=== PATIENT | female | born 1965 | race African-American/Black ===

== ENCOUNTER → 2016-07-26 11:24 | Outpatient (CLI) | payer OTHER, MEDICAID ==
[2015-06-23 07:25] VITALS: BMI 34.9
[~2016-07-26 11:24] MED LIST: ADVAIR 250/501 DISK INH; ALBUTEROL2.5 MG/3 M INH; ALDACTONE25 MG PO; BENTYL10 MG PO; CARAFATE1 G/10 ML PO; CLARITIN 10 MG10 MG PO; COLACE100 MG PO; COREG6.25 MG; COREG6.25 MG PO; COUMADIN5 MG PO; DESYREL50 MG PO; FERROUS SULFAT325 MG OR; GAVISCON LIQUI355 ML PO; HYDROCHLOROTHIA25 MG PO; IMITREX50 MG PO; IMODIUM A-D2 MG PO; K-DUR20 MEQ PO; LASIX40 MG PO; LOMOTIL TABLET1 TAB PO; MIRAPEX0.25 MG PO; MULTI-DAY VITAM1 TAB PO; NEURONTIN 300300 MG PO; NORCO 10/325 TA1 TA1 PO; NORVASC5 MG PO; OXYCONTIN20 MG PO; PEPCID20 MG PO; PERCOCET 10/3251 TA1 PO; PHENERGAN25 M1 PO; POTASSIUM20 MEQ/15 PO; POTASSIUM99 M1 PO; PRINIVIL20 MG PO; PROTONIX40 MG PO; QUESTRAN PACK4 G/PKT PO; ROBAXIN-750750 MG PO; SYNTHROID50 MCG PO; TOPAMAX25 MG PO; TOPAMAX50 MG PO; VALIUM10 MG PO; ZOFRAN4 MG OR; ZYRTEC10 MG PO
== END ==
LOC: D.NM 07-11 10:15
DX: M25.562 Pain in left knee (principal)

== ENCOUNTER 2017-02-23 14:03 | Emergency (ER) | payer OTHER, MEDICAID ==
[2015-06-23 07:25] VITALS: BMI 34.9
== END 2017-02-23 16:38 | disposition home or self-care (01) ==
LOC: D.ER 14:03
DX: M25.561 Pain in right knee (principal); Z86.718 Personal history of other venous thrombosis and embolism; K86.1 Other chronic pancreatitis

== ENCOUNTER → 2017-03-10 13:36 | Outpatient (CLI) | payer OTHER, MEDICAID ==
[2015-06-23 07:25] VITALS: BMI 34.9
[2017-03-10 15:26] LABS: BASOPHILS 0.3 % (0-2); EOSINOPHILS 1.5 % (0-7); HEMATOCRIT 36.3 % (36.0-48.0); HEMOGLOBIN 11.8 g/dL (12-16); IMMATURE GRANULOCYTES 0.2 % (0-5); LYMPHOCYTES 40.3 % (15-50); MCH 28.2 pg (26.0-34.0); MCHC 32.5 g/dL (31.0-37.0); MCV 86.8 fL (80.0-100.0); MEAN PLATELET VOLUME 12.1 fL (7.4-10.4); MONOCYTES 11.7 % (2-11); PLATELET COUNT 257 10x3/uL (130-400); RBC 4.18 10x6/uL (4.00-5.40); RDW 14.9 % (11.5-14.5); WBC 6.1 10x3/uL (4.8-10.8)
[2017-03-10 16:43] LABS: ERYTHROCYTE SEDIMENTATION RATE 45 mm/hr (0-30)
== END | disposition home or self-care (01) ==
LOC: D.LABREF 13:36
PROVIDERS: Orthopaedic Surgery
DX: M25.561 Pain in right knee (principal)

== ENCOUNTER 2017-07-14 09:14 | Emergency (ER) | payer OTHER, MEDICAID ==
[2015-06-23 07:25] VITALS: BMI 34.9
[~2017-07-14 09:14] MED LIST changes: +COREG12.5 MG PO; -COREG6.25 MG; +SYNTHROID25 MCG PO; -SYNTHROID50 MCG PO; +TOPAMAX100 MG PO; -TOPAMAX50 MG PO
[2017-07-14 09:45] LABS: BASOPHILS 0.3 % (0-2); HEMATOCRIT 36.2 % (36.0-48.0); HEMOGLOBIN 11.7 g/dL (12-16); IMMATURE GRANULOCYTES 0.3 % (0-5); MCH 27.8 pg (26.0-34.0); MCHC 32.3 g/dL (31.0-37.0); MEAN PLATELET VOLUME 10.4 fL (7.4-10.4); MONOCYTES 11.1 % (2-11); NEUTROPHILS 44.3 % (40-80); PLATELET COUNT 261 10x3/uL (130-400); RBC 4.21 10x6/uL (4.00-5.40); RDW 15.5 % (11.5-14.5); WBC 6.7 10x3/uL (4.8-10.8)
[2017-07-14 10:12] LABS: ALBUMIN 3.7 g/dL (3.4-5.0); ALKALINE PHOSPHATASE 92 U/L (46-116); ALT (SGPT) 22 U/L (10-68); AMYLASE - SERUM 77 U/L (25-115); BILIRUBIN - TOTAL 0.17 mg/dL (0.2-1.3); CALC OSMOLALITY 281 mosm/kg (275-300); CALCIUM 9.6 mg/dL (8.5-10.1); CARBON DIOXIDE 23.6 mmol/L (21.0-32.0); CHLORIDE - SERUM 107 mmol/L (98-107); CREATININE - SERUM 0.8 mg/dL (0.6-1.3); GLUCOSE 97 mg/dL (74-106); LIPASE 114 U/L (73-393); POTASSIUM - SERUM 4.2 mmol/L (3.5-5.1); PROTEIN - SERUM 7.1 g/dL (6.4-8.2); SODIUM 141 mmol/L (136-145); UREA NITROGEN 14 mg/dL (7-18); eGFR NON AFRICAN AMERICAN 79 mL/min (90-120)
[2017-07-14 11:44] LABS: AMORPHOUS SEDIMENT <1+ /lpf (NONE SEEN); APPEARANCE CLOUDY (CLEAR); BACTERIA MODERATE /hpf (NONE SEEN); BILIRUBIN NEGATIVE (NEGATIVE); COLOR YELLOW (YELLOW); GLUCOSE NEGATIVE (NEGATIVE); KETONE NEGATIVE (NEGATIVE); MUCUS <1+ /lpf (NONE SEEN); NITRITE NEGATIVE (NEGATIVE); PROTEIN NEGATIVE (NEGATIVE); RED CELLS - URINE 0-5 /hpf (0-5); SPECIFIC GRAVITY 1.015 (1.005-1.020); UROBILINOGEN NORMAL (NORMAL)
[2017-07-28] MEDS ORDERED: GLUCOPHAGE500 MG PO (10:21)
[2017-07-28] MEDS ORDERED: NORVASC10 MG PO (10:22)
[2017-07-28] MEDS ORDERED: NEURONTIN 300300 MG PO (10:22)
[2017-07-28] MEDS ORDERED: PROTONIX20 MG PO (10:23)
[2017-07-28] MEDS ORDERED: REGLAN10 MG PO (10:25)
== END 2017-07-14 13:13 | disposition home or self-care (01) ==
LOC: D.ER 09:14
PROVIDERS: Family Medicine
DX: N39.0 Urinary tract infection, site not specified (principal)

== ENCOUNTER 2017-07-20 10:17 | Emergency (ER) | payer OTHER, MEDICAID ==
[2015-06-23 07:25] VITALS: BMI 34.9
[2017-07-20 11:00] LABS: APPEARANCE CLEAR (CLEAR); BILIRUBIN NEGATIVE (NEGATIVE); COLOR YELLOW (YELLOW); GLUCOSE NEGATIVE (NEGATIVE); KETONE NEGATIVE (NEGATIVE); NITRITE NEGATIVE (NEGATIVE); PROTEIN NEGATIVE (NEGATIVE); SPECIFIC GRAVITY 1.015 (1.005-1.020); UROBILINOGEN NORMAL (NORMAL)
[2017-07-20 12:01] LABS: BASOPHILS 0.2 % (0-2); EOSINOPHILS 0.8 % (0-7); HEMOGLOBIN 11.5 g/dL (12-16); IMMATURE GRANULOCYTES 0.2 % (0-5); LYMPHOCYTES 41.8 % (15-50); MCH 27.9 pg (26.0-34.0); MCHC 32.9 g/dL (31.0-37.0); MEAN PLATELET VOLUME 10.9 fL (7.4-10.4); MONOCYTES 11.4 % (2-11); NEUTROPHILS 45.6 % (40-80); PLATELET COUNT 233 10x3/uL (130-400); RBC 4.12 10x6/uL (4.00-5.40); RDW 15.4 % (11.5-14.5); WBC 6.1 10x3/uL (4.8-10.8)
[2017-07-20 12:14] LABS: ALBUMIN 3.6 g/dL (3.4-5.0); ALKALINE PHOSPHATASE 80 U/L (46-116); ALT (SGPT) 21 U/L (10-68); BILIRUBIN - TOTAL 0.26 mg/dL (0.2-1.3); CALC OSMOLALITY 282 mosm/kg (275-300); CALCIUM 9.7 mg/dL (8.5-10.1); CARBON DIOXIDE 26.1 mmol/L (21.0-32.0); CHLORIDE - SERUM 105 mmol/L (98-107); CREATININE - SERUM 0.8 mg/dL (0.6-1.3); GLUCOSE 98 mg/dL (74-106); LIPASE 77 U/L (73-393); POTASSIUM - SERUM 4.2 mmol/L (3.5-5.1); PROTEIN - SERUM 7.5 g/dL (6.4-8.2); SODIUM 141 mmol/L (136-145); UREA NITROGEN 18 mg/dL (7-18); eGFR NON AFRICAN AMERICAN 79 mL/min (90-120)
[2017-07-28] MEDS ORDERED: GLUCOPHAGE500 MG PO (10:21)
[2017-07-28] MEDS ORDERED: NEURONTIN 300300 MG PO (10:22)
[2017-07-28] MEDS ORDERED: NORVASC10 MG PO (10:22)
[2017-07-28] MEDS ORDERED: PROTONIX20 MG PO (10:23)
[2017-07-28] MEDS ORDERED: REGLAN10 MG PO (10:25)
== END 2017-07-20 16:00 | disposition home or self-care (01) ==
LOC: D.ER 10:17
PROVIDERS: Emergency Medicine; Physician Assistant
DX: R10.31 Right lower quadrant pain (principal); K43.9 Ventral hernia without obstruction or gangrene

== ENCOUNTER 2017-07-29 05:50 | Day surgery (SDC) | payer OTHER, MEDICAID ==
[2017-07-28 11:04] LABS: BASOPHILS 0.2 % (0-2); EOSINOPHILS 0.8 % (0-7); HEMATOCRIT 38.4 % (36.0-48.0); HEMOGLOBIN 12.5 g/dL (12-16); IMMATURE GRANULOCYTES 0.3 % (0-5); MCH 27.9 pg (26.0-34.0); MCHC 32.6 g/dL (31.0-37.0); MCV 85.7 fL (80.0-100.0); MEAN PLATELET VOLUME 10.3 fL (7.4-10.4); NEUTROPHILS 46.7 % (40-80); RBC 4.48 10x6/uL (4.00-5.40); RDW 15.3 % (11.5-14.5)
[2017-07-28 11:05] LABS: CALC OSMOLALITY 277 mosm/kg (275-300); CALCIUM 9.7 mg/dL (8.5-10.1); CARBON DIOXIDE 25.9 mmol/L (21.0-32.0); CHLORIDE - SERUM 103 mmol/L (98-107); CREATININE - SERUM 0.8 mg/dL (0.6-1.3); GLUCOSE 105 mg/dL (74-106); POTASSIUM - SERUM 3.9 mmol/L (3.5-5.1); SODIUM 138 mmol/L (136-145); UREA NITROGEN 17 mg/dL (7-18); eGFR NON AFRICAN AMERICAN 79 mL/min (90-120)
[2017-07-28 11:07] LABS: PLATELET COUNT 288 10x3/uL (130-400)
[~2017-07-29] VITALS: Ht 172.7 cm; Wt 94.3 kg
--- NOTE | ~2017-07-29 | OP ---
PATIENT NAME: FELICIA ALBRECHT MEDICAL RECORD: [id number] :61 LOCATION:D.OPS ADMISSION DATE: SURGEON: COLLINS WALTERS MD DATE OF OPERATION: 07/29/2017 PREOPERATIVE DIAGNOSES: 1. Ventral incisional hernia. 2. Painful abdominal scar. 3. Congestive heart failure, undifferentiated. 4. Non-diabetic gastroparesis. POSTOPERATIVE DIAGNOSES: 1. Ventral incisional hernia. 2. Painful abdominal scar. 3. Congestive heart failure, undifferentiated. 4. Non-diabetic gastroparesis. PROCEDURE: 1. Ventral hernia repair without mesh in the suprapubic region. 2. Supraumbilical scar revision. SURGEON: Collins Walters MD REPORT OF PROCEDURE: The patient's abdomen was prepped and draped in sterile fashion. A longitudinal incision was made in the midline in the suprapubic region overlying ventral hernia. Electrocautery was used to dissect through the subcutaneous tissue until we encountered the hernia sac. The hernia sac was opened up and had incarcerated fatty tissue. The hernia defect was so small, I was not able to reduce the tissue out. I eventually just transected the fatty tissue at the base of the hernia sac and at this point, I could actually see the opening. The opening was less than a centimeter in size. Interrupted 0 Prolenes times 3 were used to close the fascial opening transversely. We then irrigated out the wound and assured there was no sign of any bleeding, 3-0 Vicryls were used to close the subcutaneous tissues and 5-0 Monocryl was used to close the skin. We infused 8 mL of 1% lidocaine with epinephrine into this wound. We then approached the supraumbilical scar. We used electrocautery, come straight down through the scar down to the fascia. The scar was excised on each side including a small layer of the skin. Once we had this done, there was just normal appearing fatty tissue present. We irrigated out the wound with normal saline and stopped any bleeding with electrocautery. The subcutaneous tissues were reapproximated with interrupted 3-0 Vicryl and the skin was closed with running subcutaneous 5-0 Monocryl. A total of 10 mL of 0.25% Marcaine with epinephrine was infused into the surrounding tissues. The 2 wounds were then dressed appropriately. COMPLICATIONS: None. CONDITION: Stable. ANESTHESIA: General endotracheal and local. BLOOD LOSS: Minimal. TRANSINT:[id number] Voice Confirmation ID: [id number] DOCUMENT ID: [id number] OPERATIVE REPORT [id number] FELICIA ALBRECHT CHRISTIAN MD at 0956 CC: GRETA SÁNCHEZ MD [id number] DICTATION DATE: 07/29/17 0954 [facility]LE E[facility] CONSULTANT: 07/29/17 1155 [facility] [place] 07/29/17 [id number] [place] [address]
[~2017-07-29 05:50] MED LIST changes: +GLUCOPHAGE500 MG PO; +NORVASC10 MG PO; +PROTONIX20 MG PO; +REGLAN10 MG PO
[2017-07-29 07:37] VITALS: BP 140/78; Ht 172.7 cm; Wt 94.3 kg
[2017-07-29] MEDS ORDERED: HYDROCODONE-APA1 TAB PO (09:46)
== END 2017-07-29 14:10 | disposition home or self-care (01) ==
LOC: D.OPS 05:50 → D.PAN 09:15 → D.OPS 09:15
PROVIDERS: Surgery
DX: K43.6 Other and unspecified ventral hernia with obstruction, without gangrene (principal); I50.9 Heart failure, unspecified; K31.84 Gastroparesis; L90.5 Scar conditions and fibrosis of skin; Z01.812 Encounter for preprocedural laboratory examination

== ENCOUNTER → 2018-02-10 20:10 | Outpatient (CLI) | payer MEDICAID ==
[2017-07-29 07:37] VITALS: BMI 31.6
[~2018-02-10 20:10] MED LIST changes: +HYDROCODONE-APA1 TAB PO
== END | disposition home or self-care (01) ==
LOC: D.MAMMO 14:00
DX: Z12.31 Encounter for screening mammogram for malignant neoplasm of breast (principal)

== ENCOUNTER 2018-07-14 14:15 | Emergency (ER) | payer MEDICAID, OTHER ==
[2018-07-14 14:22] VITALS: Ht 172.7 cm
[2018-07-14] MEDS ORDERED: ELAVIL75 MG (14:24)
[2018-07-14 14:51] LABS: BASOPHILS 0.1 % (0-2); EOSINOPHILS 0.7 % (0-7); HEMATOCRIT 39.5 % (36.0-48.0); HEMOGLOBIN 13.1 g/dL (12-16); IMMATURE GRANULOCYTES 0.4 % (0-5); MCH 28.6 pg (26.0-34.0); MCHC 33.2 g/dL (31.0-37.0); MCV 86.2 fL (80.0-100.0); MEAN PLATELET VOLUME 10.4 fL (7.4-10.4); MONOCYTES 9.9 % (2-11); NEUTROPHILS 48.9 % (40-80); RBC 4.58 10x6/uL (4.00-5.40); WBC 7.1 10x3/uL (4.8-10.8)
[2018-07-14 14:52] LABS: PLATELET COUNT 145 10x3/uL (130-400)
[2018-07-14 15:06] LABS: ALBUMIN 3.6 g/dL (3.4-5.0); ALKALINE PHOSPHATASE 106 U/L (46-116); ALT (SGPT) 27 U/L (10-68); BILIRUBIN - TOTAL 0.44 mg/dL (0.2-1.3); CALC OSMOLALITY 281 mosm/kg (275-300); CALCIUM 9.2 mg/dL (8.5-10.1); CHLORIDE - SERUM 104 mmol/L (98-107); GLUCOSE 120 mg/dL (74-106); POTASSIUM - SERUM 3.8 mmol/L (3.5-5.1); PROTEIN - SERUM 7.6 g/dL (6.4-8.2); SODIUM 140 mmol/L (136-145); UREA NITROGEN 19 mg/dL (7-18); eGFR NON AFRICAN AMERICAN 61 mL/min (90-120)
[2018-07-14 15:16] LABS: CKMB 2.7 U/L (0.0-3.6); CREATINE KINASE 399 UL (21-215); MAGNESIUM - SERUM 1.7 mg/dL (1.8-2.4); TROPONIN-I < 0.017 ng/mL (0.000-0.060)
[2018-07-14] MEDS ORDERED: ULTRAM50 MG PO (15:37)
[2018-07-14 16:05] VITALS: BP 134/72
[2018-07-14 16:23] LABS: INR 0.94 (0.85-1.17); PROTIME 12.1 SECONDS (11.6-15.0)
[2018-07-14 16:24] LABS: APTT 28.3 SECONDS (22.8-39.4)
== END 2018-07-14 16:07 | disposition home or self-care (01) ==
LOC: D.ER 14:15
PROVIDERS: Emergency Medicine
DX: R07.9 Chest pain, unspecified (principal)

== ENCOUNTER 2018-07-29 18:38 | Emergency (ER) | payer OTHER, MEDICAID ==
[~2018-07-29] VITALS: Ht 172.7 cm; Wt 99.5 kg
[~2018-07-29 18:38] MED LIST changes: +ELAVIL75 MG; +ULTRAM50 MG PO
[2018-07-29 19:14] VITALS: Ht 172.7 cm; Wt 99.5 kg
[2018-07-29 20:10] LABS: BASOPHILS 0.3 % (0-2); EOSINOPHILS 0.9 % (0-7); HEMATOCRIT 38.9 % (36.0-48.0); IMMATURE GRANULOCYTES 0.3 % (0-5); LYMPHOCYTES 45.3 % (15-50); MCH 28.4 pg (26.0-34.0); MCHC 33.4 g/dL (31.0-37.0); MCV 84.9 fL (80.0-100.0); MEAN PLATELET VOLUME 10.3 fL (7.4-10.4); MONOCYTES 8.3 % (2-11); NEUTROPHILS 44.9 % (40-80); RBC 4.58 10x6/uL (4.00-5.40); RDW 15.4 % (11.5-14.5); WBC 7.4 10x3/uL (4.8-10.8)
[2018-07-29 20:14] LABS: APPEARANCE CLEAR (CLEAR); BILIRUBIN NEGATIVE (NEGATIVE); COLOR YELLOW (YELLOW); GLUCOSE NEGATIVE (NEGATIVE); KETONE NEGATIVE (NEGATIVE); NITRITE NEGATIVE (NEGATIVE); PROTEIN NEGATIVE (NEGATIVE); UROBILINOGEN NORMAL (NORMAL)
[2018-07-29 20:20] LABS: PLATELET COUNT 274 10x3/uL (130-400)
[2018-07-29 20:55] LABS: ALBUMIN 3.9 g/dL (3.4-5.0); ALKALINE PHOSPHATASE 102 U/L (46-116); ALT (SGPT) 31 U/L (10-68); BILIRUBIN - TOTAL 0.21 mg/dL (0.2-1.3); CALC OSMOLALITY 281 mosm/kg (275-300); CALCIUM 9.6 mg/dL (8.5-10.1); CARBON DIOXIDE 23.8 mmol/L (21.0-32.0); CHLORIDE - SERUM 106 mmol/L (98-107); CREATININE - SERUM 0.9 mg/dL (0.6-1.3); GLUCOSE 99 mg/dL (74-106); LIPASE 153 U/L (73-393); POTASSIUM - SERUM 3.9 mmol/L (3.5-5.1); PROTEIN - SERUM 7.7 g/dL (6.4-8.2); SODIUM 141 mmol/L (136-145); UREA NITROGEN 16 mg/dL (7-18); eGFR NON AFRICAN AMERICAN 69 mL/min (90-120)
[2018-07-29 21:02] LABS: TROPONIN-I < 0.017 ng/mL (0.000-0.060)
[2018-07-30 02:17] VITALS: BP 146/82
== END 2018-07-30 02:15 | disposition home or self-care (01) ==
LOC: D.ER 18:38
PROVIDERS: Emergency Medicine; Family Medicine
DX: R10.11 Right upper quadrant pain (principal); I10 Essential (primary) hypertension

== ENCOUNTER 2018-12-03 11:20 | Observation (INO) | payer OTHER, MEDICAID ==
[2018-12-03] VITALS (7 sets, daily range): BP systolic 134–177; BP diastolic 48–106; Ht 172.7 cm; Wt 70.9 kg
[~2018-12-03] VITALS: Ht 172.7 cm; Wt 70.9 kg
--- NOTE | ~2018-12-03 | ST ---
PATIENT:FELICIA ALBRECHT MEDICAL RECORD: [id number] SEX: F LOCATION:[address] ORDER #: ADMISSION DATE: 12/03/18 AGE OF PATIENT: 53 REFERRING PHYSICIAN: INTERPRETING PHYSICIAN: CAITLIN MENON MD DATE OF SERVICE: 12/03/2018 PROCEDURE: Stress only nuclear stress test. INDICATION: Chest pain of unknown etiology. She was exercised on standard Lexiscan protocol with 26 mCi injected at peak stress. FINDINGS: Gated SPECT reveals a preserved ejection fraction of 70% with good wall motion and thickening and brightening throughout all segments. SPECT imaging: Cardiolite was used as myocardial perfusion agent. Stress only images show excellent perfusion throughout all segments with no evidence of inducible ischemia or previous infarction. OVERALL IMPRESSION: This is a normal stress only nuclear stress test with no evidence of inducible ischemia or previous infarction. TRANSINT:[id number] Voice Confirmation ID: [id number] DOCUMENT ID: [id number] CAITLIN MENON MD CC: [id number] DICTATION DATE: 12/03/18 171 DISPATCHER AUTOMOBILE RENTAL: 12/04/18 0910 ADM IN [facility] [address] [place] [address]
--- NOTE | ~2018-12-03 | CN ---
PATIENT NAME:FELICIA ALBRECHT MEDICAL RECORD: [id number] : 61 LOCATION:.ER ADMIT DATE: ACCOUNT: [id number] CONSULTING PHYSICIAN: CAITLIN MENON MD REFERRING PHYSICIAN: LING CRUZ MD DATE OF CONSULTATION: 12/03/2018 CARDIOLOGY CONSULTATION DATE OF SERVICE: 12/03/2018 ADMITTING DIAGNOSES: 1. Chest pain. 2. Shortness of breath. 3. History of congestive heart failure according to the patient. 4. Hypertension. 5. Smoking history. 6. Chronic obstructive pulmonary disease. 7. Noninsulin-dependent diabetes. HISTORY OF PRESENT ILLNESS: Mrs. Albrecht presents with 4 days of chest discomfort, a dull aching pressure sensation across the anterior chest associated with episodes of diaphoresis. She has had multiple episodes of the chest discomfort. Over the past 4 days, she is well, is more short of breath. She has been told by Dr. Garcia in [facility] that she has a bad heart. She says that she has not had cardiac catheterization or a stress test in the past. She states that she has had congestive heart failure because of the bad heart. Her chest x-ray does not have pulmonary edema. Her EKG has no acute ST-T abnormalities. She does continue to have the pain. PHYSICAL EXAMINATION: GENERAL APPEARANCE: Well-nourished, well-developed, appears stated age. Level of distress, comfortable. PSYCHIATRIC: Mental status, alert, normal affect. Orientation, oriented to time, place and person. EYES: Lids and conjunctiva, noninjected. No discharge, no pallor. ENT: Lips, teeth, gums, normal dentition. Oropharynx, no cyanosis, no pallor. NECK: Carotid arteries, bilateral normal upstroke, no bruits, no thrills. JUGULAR VEINS: No jugular venous pressure or distention. CERVICAL LYMPH NODES: Nontender, nonenlarged. THYROID: Not enlarged. Nontender. No nodules. LUNGS: Respiratory effort, unlabored. CHEST: Normal curvature. No thoracic deformity. No chest wall tenderness. Percussion, resonant. Auscultation, clear. No wheezes, no rales, no rhonchi. CARDIOVASCULAR: Precordial exam, nondisplaced. No heaves or pericardial thrills. Rate and rhythm, regular. Heart sounds, normal S1, normal S2. No S3, no gallop, no rub. Systolic murmur, not heard. Diastolic murmur, not heard. EXTREMITIES: No cyanosis, no edema. Peripheral pulses, full and equal in all extremities, except as noted. No bruits appreciated. ABDOMEN: Soft, nondistended. Normal aorta. No bruit. Nontender. No masses. Liver, nontender, no hepatomegaly. Spleen, nontender, no splenomegaly. MUSCULOSKELETAL: No joint tenderness. No joint swelling. No erythema. NEUROLOGICAL: Normal gait, normal strength, normal tone. SKIN: Warm and dry. CONSULT REPORT [id number] FELICIA ALBRECHT OVERALL IMPRESSION: Chest pain compatible with angina. Difficult to tell what her cardiac history is by her history. We will do a stress test with Cardiolite imaging as well get an echocardiogram. Further care depends upon findings of these studies. TRANSINT:[id number] Voice Confirmation ID: [id number] DOCUMENT ID: [id number] CAITLIN MENON MD CC: [id number] DICTATION DATE: 12/03/18 1258 NUTRITION PARTNER: 12/03/18 1429 [facility] [address] [id number]
--- NOTE | ~2018-12-03 | EC ---
PATIENT:FELICIA ALBRECHT DATE OF SERVICE: 12/03/18 SEX: F MEDICAL RECORD: [id number] DATE OF : 61 LOCATION:D.M2 [address].211 AGE OF PATIENT: 53 ADMISSION DATE: 12/03/18 REFERRING PHYSICIAN: INTERPRETING PHYSICIAN: CAITLIN WEATHERS MD ECHOCARDIOGRAM REPORT ECHO CHARGES 4 ECHO COMPLETE Date: 12/03/18 CLINICAL DIAGNOSIS: SOB ECHOCARDIOGRAPHIC MEASUREMENTS (adult normal given) AC root (d.<3.7cm) 3.2 cm LV Septum d (<1.2 cm> 1.5 cm Valve Excursion 2.1 cm LV Septum (systole) 2.0 cm Left Atria (s.<4.0cm> 3.4 cm LVPW d(<1.2cm) 1.5 cm RV (d.<2.3cm) 2.1 cm LVPW (sytole) 1.9 cm LV diastole(<5.6CM) 4.4 cm MV E-F(>70mm/sec) cm LV systole 2.3 cm LVOT Diameter 1.8 cm MV exc.(>10mm) cm Est.ejection fraction (50-75%) % DOPPLER: LVIT cm/sec A 94.0 cm/sec E 78.0 cm/sec LA cm/sec RVSP 23.0 mmHg LVOT 100 cm/sec AOP1/2T m/s Asc. Ao 125 cm/sec RVOT 48.0 cm/sec RA cm/sec PA 86.0 cm/sec AV Gradient Peak 6.2 mmHg AV Mean 3.0 mmHg AV Area 1.9 cm MV Gradient Peak 4.1 mmHg MV Mean 1.5 mmHg MV Area cm COMMENTS: Reel Assembler: Chary GIRALDOOE Front Line Supervisor: 1 Dr. Weathers TAPE# PACS Pericardial Effusion N DATE OF SERVICE: 12/03/2018 FINDINGS: 1. Left ventricular chamber size is within normal limits. Left ventricular systolic function is normal. Overall ejection fraction estimated at 60%. 2. Left atrium, right atrium, and right ventricle chamber sizes are within normal limits. 3. Valvular structures have normal structure and motion. 4. Doppler interrogation reveals mild mitral regurgitation, mild tricuspid regurgitation, no other valvular insufficiency or stenosis. Pulmonary systolic ECHOCARDIOGRAM REPORT [id number] FELICIA ALBRECTH pressure is estimated at 23 mmHg. 5. No evidence of pericardial effusion or left ventricular thrombus. TRANSINT:[id number] Voice Confirmation ID: [id number] DOCUMENT ID: [id number] CAITLIN WEATHERS MD CC: GRETA SÁNCHEZ [id number] DICTATION DATE: 12/03/181714 METROLOGY SPECIALIST: 12/03/182019 ADM IN [facility] [address] [place] [address]
[2018-12-03] MEDS ORDERED: CREON DR 6,0001 EACH PO (12:02)
[2018-12-03 12:39] LABS: BASOPHILS 0.3 % (0-2); EOSINOPHILS 0.6 % (0-7); HEMATOCRIT 37.4 % (36.0-48.0); HEMOGLOBIN 12.4 g/dL (12-16); IMMATURE GRANULOCYTES 0.1 % (0-5); MCHC 33.2 g/dL (31.0-37.0); MCV 84.4 fL (80.0-100.0); PLATELET COUNT 272 10x3/uL (130-400); RBC 4.43 10x6/uL (4.00-5.40); RDW 14.8 % (11.5-14.5)
[2018-12-03 12:48] LABS: APTT 33.2 SECONDS (22.8-39.4); INR 1.11 (0.85-1.17); PROTIME 13.8 SECONDS (11.6-15.0)
[2018-12-03 12:53] LABS: ALBUMIN 3.5 g/dL (3.4-5.0); ALKALINE PHOSPHATASE 97 U/L (46-116); ALT (SGPT) 29 U/L (10-68); BILIRUBIN - TOTAL 0.25 mg/dL (0.2-1.3); CALC OSMOLALITY 278 mosm/kg (275-300); CALCIUM 9.1 mg/dL (8.5-10.1); CARBON DIOXIDE 24.1 mmol/L (21.0-32.0); CHLORIDE - SERUM 106 mmol/L (98-107); CREATININE - SERUM 0.8 mg/dL (0.6-1.3); GLUCOSE 108 mg/dL (74-106); POTASSIUM - SERUM 3.6 mmol/L (3.5-5.1); PROTEIN - SERUM 7.6 g/dL (6.4-8.2); SODIUM 139 mmol/L (136-145); UREA NITROGEN 12 mg/dL (7-18); eGFR NON AFRICAN AMERICAN 79 mL/min (90-120)
[2018-12-03 13:04] LABS: CKMB 1.4 U/L (0.0-3.6); CREATINE KINASE 189 UL (21-215); MAGNESIUM - SERUM 1.7 mg/dL (1.8-2.4); TROPONIN-I < 0.017 ng/mL (0.000-0.060)
--- NOTE | 2018-12-03 17:30 | NUR ---
RECEIVED PT FROM ER VIA W/C IN STABLE CONDITION AAOX4 RESP UNLABORED ON ROOM AIR SKIN W/D COLOR WNL PT DENIES ANY NEEDS OR DISCOMFORT NAD NOTED
--- NOTE | 2018-12-03 19:30 | NUR ---
RESUMING PATIENT CARE. PATIENT IS AAOX4. RESPIRATIONS ARE EVEN AND UNLABORED. NO S/S OF DISTRESS. NO C/O PAIN. NEEDS MET. CALL LIGHT WITHIN REACH. FAMILY AT BEDSIDE. WILL CPOC.
[2018-12-03 23:08] LABS: CKMB 0.9 U/L (0.0-3.6); CREATINE KINASE 147 UL (21-215)
[2018-12-03 23:11] LABS: TROPONIN-I < 0.017 ng/mL (0.000-0.060)
[2018-12-04] VITALS: BP 121/70
--- NOTE | 2018-12-04 07:53 | NUR ---
REPORT RECEIVED FROM REMEDIATION PROJECT ENGINEER NURSE. PT AWAKE AND NO DISTRESS NOTED . POC EXPLAINED TO PT AND PT UNDERSTANDS. WILL CONT TO MONITOR.
[2018-12-04 08:21] LABS: BASOPHILS 0.3 % (0-2); EOSINOPHILS 0.6 % (0-7); HEMATOCRIT 37.6 % (36.0-48.0); HEMOGLOBIN 12.3 g/dL (12-16); IMMATURE GRANULOCYTES 0.1 % (0-5); LYMPHOCYTES 36.3 % (15-50); MCH 27.7 pg (26.0-34.0); MCHC 32.7 g/dL (31.0-37.0); MCV 84.7 fL (80.0-100.0); MEAN PLATELET VOLUME 10.6 fL (7.4-10.4); MONOCYTES 12.7 % (2-11); PLATELET COUNT 304 10x3/uL (130-400); RBC 4.44 10x6/uL (4.00-5.40); RDW 14.8 % (11.5-14.5); WBC 6.7 10x3/uL (4.8-10.8)
[2018-12-04 08:54] LABS: CALC OSMOLALITY 282 mosm/kg (275-300); CALCIUM 9.2 mg/dL (8.5-10.1); CARBON DIOXIDE 23.2 mmol/L (21.0-32.0); CHLORIDE - SERUM 107 mmol/L (98-107); CHOL - HDL RATIO 5.5 ratio (2.3-4.1); CHOLESTEROL, TOTAL 224 mg/dL (0-200); CKMB 0.8 U/L (0.0-3.6); CREATINE KINASE 122 UL (21-215); CREATININE - SERUM 0.8 mg/dL (0.6-1.3); GLUCOSE 127 mg/dL (74-106); HDL CHOLESTEROL 41 mg/dL (32-96); LDL CHOLESTEROL 155 mg/dL (0-100); LDL-HDL RATIO 3.8 ratio (1.5-3.5); POTASSIUM - SERUM 3.5 mmol/L (3.5-5.1); SODIUM 141 mmol/L (136-145); TRIGLYCERIDE 144 mg/dL (30-200); TROPONIN-I < 0.017 ng/mL (0.000-0.060); UREA NITROGEN 12 mg/dL (7-18); eGFR NON AFRICAN AMERICAN 79 mL/min (90-120)
[2018-12-04 09:38] VITALS: BP 147/71
[2018-12-04 10:51] LABS: APPEARANCE CLEAR (CLEAR); BILIRUBIN NEGATIVE (NEGATIVE); COLOR YELLOW (YELLOW); GLUCOSE NEGATIVE (NEGATIVE); KETONE MODERATE mg/dL (NEGATIVE); NITRITE NEGATIVE (NEGATIVE); PROTEIN NEGATIVE (NEGATIVE); SPECIFIC GRAVITY 1.015 (1.005-1.020); UROBILINOGEN NORMAL (NORMAL)
--- NOTE | 2018-12-04 11:30 | NUR ---
FSBS 132
[2018-12-04 12:43] VITALS: BP 164/83
[2018-12-04] MEDS ORDERED: CYMBALTA30 MG PO (13:28)
[2018-12-04] MEDS ORDERED: IBUPROFEN400 MG PO (13:29)
--- NOTE | 2018-12-04 15:20 | NUR ---
REVIEWED DISCHARGE INSTRUCTIONS WITH PT STATES UNDERSTANDING COPY GIVEN PT DISCHARGED HOME LEFT UNIT VIA W/C IN STABLE CONDITION WITH ALL PERSONAL BELONGINGS
--- NOTE | 2018-12-05 13:54 | MORECARE ---
CASE MANAGEMENT DISCHARGE SUMMARY PATIENT: FELICIA ALBRECHT UNIT: [id number] ADM DATE: 12/03/18 AGE: 53 : 61 SEX: F ROOM/BED: D.5008 AUTHOR: TALISHA SEO PHYSICIAN: REFERRING PHYSICIAN: SOHEILA MOSLEY MD DATE OF SERVICE: 12/05/18 Discharge Plan Patient Name: FELICIA ALBRECHT [facility] [facility] 1965 Planned Disposition: Anticipated Discharge Date: Discharge Date: 12/04/2018 Expected LOS: Initial Reviewer: [email or web address] Initial Review Date: 12/03/2018 Generated: 12/05/18 2:53 pm Patient Name: FELICIA ALBRECHT Page [id number] at 1354 All edits/amendments must be made on the electronic document DICTATION DATE: 12/05/18 1353 SALES EFFECTIVENESS MANAGER: KEDAR 12/05/18 1353 RPT#: [id number] DC DATE:12/04/18 STATUS: DIS IN [facility] [address] [place] [address] END OF REPORT
== END 2018-12-04 15:20 | disposition home or self-care (01) ==
LOC: D.ER 11:20 → D.M2 15:31 → OBSVTIME 15:31 → D.M2 12-04 15:20
PROVIDERS: Family Medicine; Internal Medicine Nephrology; ADMIT Family Medicine; ATTEND Family Medicine
DX: R07.9 Chest pain, unspecified (principal); I11.0 Hypertensive heart disease with heart failure; I50.9 Heart failure, unspecified; J44.9 Chronic obstructive pulmonary disease, unspecified; E11.9 Type 2 diabetes mellitus without complications; M94.0 Chondrocostal junction syndrome [Tietze]

== ENCOUNTER 2019-02-21 10:19 | Emergency (ER) | payer MEDICAID ==
[~2019-02-21] VITALS: Ht 172.7 cm; Wt 96.4 kg
[~2019-02-21 10:19] MED LIST changes: +CREON DR 6,0001 EACH PO; +CYMBALTA30 MG PO; +IBUPROFEN400 MG PO
[2019-02-21 10:22] VITALS: Ht 172.7 cm; Wt 96.4 kg
[2019-02-21] MEDS ORDERED: ZOFRAN4 MG PO (11:35)
[2019-02-21 11:52] VITALS: BP 146/83
== END 2019-02-21 11:53 | disposition home or self-care (01) ==
LOC: D.ER 10:19
DX: G43.909 Migraine, unspecified, not intractable, without status migrainosus (principal); R11.0 Nausea

== ENCOUNTER 2019-03-22 09:49 | Emergency (ER) | payer MEDICAID ==
[~2019-03-22] VITALS: Ht 172.7 cm; Wt 97.7 kg
[~2019-03-22 09:49] MED LIST changes: +ZOFRAN4 MG PO
[2019-03-22 10:07] VITALS: Ht 172.7 cm; Wt 97.7 kg
[2019-03-22 10:52] LABS: BASOPHILS 0.4 % (0-2); EOSINOPHILS 1.3 % (0-7); HEMATOCRIT 36.1 % (36.0-48.0); HEMOGLOBIN 12.3 g/dL (12-16); IMMATURE GRANULOCYTES 0.2 % (0-5); LYMPHOCYTES 39.9 % (15-50); MCH 28.7 pg (26.0-34.0); MCHC 34.1 g/dL (31.0-37.0); MCV 84.1 fL (80.0-100.0); MEAN PLATELET VOLUME 10.5 fL (7.4-10.4); MONOCYTES 9.7 % (2-11); NEUTROPHILS 48.5 % (40-80); PLATELET COUNT 252 10x3/uL (130-400); RBC 4.29 10x6/uL (4.00-5.40); RDW 15.3 % (11.5-14.5); WBC 5.5 10x3/uL (4.8-10.8)
[2019-03-22 11:00] LABS: ALBUMIN 3.8 g/dL (3.4-5.0); ALKALINE PHOSPHATASE 88 U/L (46-116); ALT (SGPT) 23 U/L (10-68); BILIRUBIN - TOTAL 0.36 mg/dL (0.2-1.3); CALC OSMOLALITY 281 mosm/kg (275-300); CALCIUM 9.5 mg/dL (8.5-10.1); CARBON DIOXIDE 29.8 mmol/L (21.0-32.0); CHLORIDE - SERUM 105 mmol/L (98-107); CREATININE - SERUM 0.7 mg/dL (0.6-1.3); GLUCOSE 113 mg/dL (74-106); POTASSIUM - SERUM 3.7 mmol/L (3.5-5.1); PROTEIN - SERUM 7.9 g/dL (6.4-8.2); SODIUM 142 mmol/L (136-145); UREA NITROGEN 8 mg/dL (7-18); eGFR NON AFRICAN AMERICAN > 90 mL/min (90-120)
[2019-03-22 11:04] LABS: AMYLASE - SERUM 60 U/L (25-115); LIPASE 74 U/L (73-393)
[2019-03-22 11:13] LABS: TROPONIN-I < 0.017 ng/mL (0.000-0.060)
[2019-03-22 11:43] LABS: APPEARANCE CLEAR (CLEAR); COLOR YELLOW (YELLOW)
[2019-03-22 11:44] LABS: BILIRUBIN NEGATIVE (NEGATIVE); GLUCOSE NEGATIVE (NEGATIVE); KETONE NEGATIVE (NEGATIVE); NITRITE POSITIVE (NEGATIVE); PROTEIN NEGATIVE (NEGATIVE); SPECIFIC GRAVITY 1.015 (1.005-1.020)
[2019-03-22 11:48] LABS: BACTERIA MODERATE /hpf (NONE SEEN); EPITHELIAL CELLS 0-5 /hpf (0-5); HYALINE CAST RARE /lpf (NONE SEEN); MUCUS <1+ /lpf (NONE SEEN); RED CELLS - URINE 0-5 /hpf (0-5)
[2019-03-22 12:49] LABS: HCG SERUM NEGATIVE (NEGATIVE)
[2019-03-22] MEDS ORDERED: ULTRAM50 MG PO (15:24)
[2019-03-22] MEDS ORDERED: OMNICEF300 MG PO (15:24)
[2019-03-22 15:38] VITALS: BP 185/79
== END 2019-03-22 15:38 | disposition home or self-care (01) ==
LOC: D.ER 09:49
PROVIDERS: Family Medicine
DX: N39.0 Urinary tract infection, site not specified (principal); E11.9 Type 2 diabetes mellitus without complications; I10 Essential (primary) hypertension

== ENCOUNTER → 2019-04-20 11:02 | Outpatient (CLI) | payer MEDICAID ==
[2019-03-22 10:07] VITALS: BMI 32.7
[~2019-04-20 11:02] MED LIST changes: +ASPIRIN325 MG PO; +DOXYCYCLINE HY100 M2 PO; +HYDROCODONE-A1 UDTA2 PO; +OMNICEF300 MG PO
[2019-04-20 11:24] LABS: BASOPHILS 0.3 % (0-2); EOSINOPHILS 1.3 % (0-7); HEMATOCRIT 39.9 % (36.0-48.0); HEMOGLOBIN 12.9 g/dL (12-16); IMMATURE GRANULOCYTES 0.3 % (0-5); LYMPHOCYTES 46.4 % (15-50); MCH 27.8 pg (26.0-34.0); MCHC 32.3 g/dL (31.0-37.0); MEAN PLATELET VOLUME 9.9 fL (7.4-10.4); MONOCYTES 10.4 % (2-11); NEUTROPHILS 41.3 % (40-80); PLATELET COUNT 291 10x3/uL (130-400); RBC 4.64 10x6/uL (4.00-5.40); RDW 14.9 % (11.5-14.5); WBC 6.9 10x3/uL (4.8-10.8)
[2019-04-20 12:30] LABS: ERYTHROCYTE SEDIMENTATION RATE 45 mm/hr (0-30)
== END | disposition home or self-care (01) ==
LOC: D.LAB 11:02
PROVIDERS: ATTEND Orthopaedic Surgery
DX: M17.11 Unilateral primary osteoarthritis, right knee (principal)

== ENCOUNTER 2019-04-22 11:04 | Inpatient (IN) | payer OTHER, MEDICAID ==
[~2019-04-22] VITALS: Ht 172.7 cm; Wt 97.5 kg
[~2019-04-22 11:04] MED LIST changes: -ASPIRIN325 MG PO; -DOXYCYCLINE HY100 M2 PO; -HYDROCODONE-A1 UDTA2 PO
[2019-04-27] MEDS ORDERED: HYDROCODONE-A1 UDTA2 PO (14:45)
[2019-04-28 11:38] LABS: APPEARANCE CLEAR (CLEAR); BILIRUBIN NEGATIVE (NEGATIVE); COLOR YELLOW (YELLOW); GLUCOSE NEGATIVE (NEGATIVE); KETONE NEGATIVE (NEGATIVE); NITRITE NEGATIVE (NEGATIVE); PROTEIN NEGATIVE (NEGATIVE); UROBILINOGEN NORMAL (NORMAL)
[2019-04-28 11:44] LABS: BASOPHILS 0.3 % (0-2); EOSINOPHILS 1.1 % (0-7); HEMATOCRIT 39.9 % (36.0-48.0); HEMOGLOBIN 12.8 g/dL (12-16); IMMATURE GRANULOCYTES 0.2 % (0-5); LYMPHOCYTES 40.1 % (15-50); MCH 27.9 pg (26.0-34.0); MCHC 32.1 g/dL (31.0-37.0); MCV 86.9 fL (80.0-100.0); MEAN PLATELET VOLUME 10.2 fL (7.4-10.4); MONOCYTES 10.4 % (2-11); NEUTROPHILS 47.9 % (40-80); PLATELET COUNT 262 10x3/uL (130-400); RBC 4.59 10x6/uL (4.00-5.40); RDW 15.1 % (11.5-14.5); WBC 6.2 10x3/uL (4.8-10.8)
[2019-04-28 11:54] LABS: APTT 33.6 SECONDS (22.8-39.4); INR 1.01 (0.85-1.17); PROTIME 12.8 SECONDS (11.6-15.0)
[2019-04-28 12:05] LABS: CALC OSMOLALITY 280 mosm/kg (275-300); CALCIUM 9.5 mg/dL (8.5-10.1); CARBON DIOXIDE 25.5 mmol/L (21.0-32.0); CHLORIDE - SERUM 106 mmol/L (98-107); CREATININE - SERUM 0.8 mg/dL (0.6-1.3); GLUCOSE 96 mg/dL (74-106); POTASSIUM - SERUM 4.2 mmol/L (3.5-5.1); SODIUM 140 mmol/L (136-145); UREA NITROGEN 17 mg/dL (7-18); eGFR NON AFRICAN AMERICAN 78 mL/min (90-120)
[2019-05-12] VITALS (9 sets, daily range): BP systolic 127–177; BP diastolic 62–89; BMI 32.7
--- NOTE | 2019-05-12 20:00 | NUR ---
ALERT RESTING IN BED, CPM IN USE, SEE SHIFT ASSESSMENT, CALL LIGHT IN REACH, MARYELLEN WRAP DRESSING INTACT TO RIGHT KNEE, INSTRUCTED ON NEED TO TRY TO VOID BED GARCIAS GIVEN
[2019-05-13] VITALS: BP 147/68
--- NOTE | 2019-05-13 01:30 | NUR ---
IN AND OUT CATH DONE DUE TO HAS BEEN UNABLE TO VOID SINCE FAZAL, RETURN OF 1050 CC CLEAR YELLOW URINE
[2019-05-13 05:00] VITALS: BP 194/64
[2019-05-13 05:58] LABS: BASOPHILS 0.1 % (0-2); EOSINOPHILS 0 % (0-7); HEMATOCRIT 36.7 % (36.0-48.0); HEMOGLOBIN 11.7 g/dL (12-16); IMMATURE GRANULOCYTES 0.4 % (0-5); LYMPHOCYTES 16.3 % (15-50); MCH 27.8 pg (26.0-34.0); MCHC 31.9 g/dL (31.0-37.0); MCV 87.2 fL (80.0-100.0); MEAN PLATELET VOLUME 11.1 fL (7.4-10.4); NEUTROPHILS 71.2 % (40-80); PLATELET COUNT 243 10x3/uL (130-400); RBC 4.21 10x6/uL (4.00-5.40); RDW 15.3 % (11.5-14.5); WBC 11.3 10x3/uL (4.8-10.8)
[2019-05-13 06:20] LABS: ANION GAP 14.2 mmol/L (8-16); CARBON DIOXIDE 22.5 mmol/L (21.0-32.0); CREATININE - SERUM 0.9 mg/dL (0.6-1.3); POTASSIUM - SERUM 3.7 mmol/L (3.5-5.1)
--- NOTE | 2019-05-13 07:30 | NUR ---
PT RESTING IN BED WITH CO OF PAIN TO RIGHT LOWER EXTREMITY. PT ABLE TO MOVE TOES, WARM TO TOUCH AND PPP. DISCUSSED NEXT TIME PAIN MEDS DUE. IV TO LEFT FOREARM RED, WARM AND SWOLLEN. IV DISCONTINUED FROM THIS SITE AT THIS TIME. INSTRUCTED PT NEED TO RESITE IV. PT VOICES UNDERSTANDING. DRESSING C/D/I TO RIGHT LOWER EXTREMITY WITH PREVENA WOUND VAC IN PLACE. CL WITHIN REACH. ENCOURAGED PT TO CALL WITH NEEDS. WILL RESITE IV. CONTINUE POC
--- NOTE | 2019-05-13 08:45 | NUR ---
22 gauge iv started on the second attempt in the right arm, flushed without difficulty secured with tape and tegaderm. lanie orellana, Carlie aware of iv access
[2019-05-13 08:56] VITALS: BP 180/70
[2019-05-13 12:14] VITALS: Ht 172.7 cm; Wt 97.5 kg
[2019-05-13 12:49] VITALS: BP 199/88
--- NOTE | 2019-05-13 15:51 | MORECARE ---
CASE MANAGEMENT DISCHARGE SUMMARY PATIENT: FELICIA ALBRECHT UNIT: [id number] ADM DATE: 05/12/19 AGE: 54 : 61 SEX: F ROOM/BED: D.2210 AUTHOR: TALISHA SEO PHYSICIAN: REFERRING PHYSICIAN: YARA MENCHACA MD DATE OF SERVICE: 05/13/19 Discharge Plan Patient Name: FELICIA ALBRECHT [facility] [facility] 1965 Planned Disposition: Home with Home Health Anticipated Discharge Date: Discharge Date: Expected LOS: Initial Reviewer: [email or web address] Initial Review Date: 05/12/2019 Generated: 05/13/19 4:51 pm DCPIA - Discharge Planning Initial Assessment Updated by [email or web address]: Helena Garcia on 05/13/19 3:49 pm * Is the patient Alert and Oriented? Yes * How many steps to enter\exit or inside your home? * PCP WELSH * Pharmacy [facility] * Preadmission Environment Home with Family * ADLs Independent * Equipment None * List name and contact numbers for known caregivers / representatives who currently or will assist patient after discharge: SANG (SPOUSE) [phone] * Verbal permission to speak to the caregivers and representatives has been obtained from the patient. Yes * Community resources currently utilized None * Additional services required to return to the preadmission environment? Yes * Can the patient safely return to the preadmission environment? Yes * Has this patient been hospitalized within the prior 30 days at any hospital? No Patient Name: FELICIA ALBRECHT Page [id number] at 1551 All edits/amendments must be made on the electronic document DICTATION DATE: 05/13/19 155 PUBLIC WORKS MANAGER: KEDAR 05/13/19 155 RPT#: [id number] [place] DATE: STATUS: ADM IN [facility] [address] [place] [address] END OF REPORT
--- NOTE | 2019-05-13 15:59 | MORECARE ---
CASE MANAGEMENT DISCHARGE SUMMARY PATIENT: FELICIA ALBRECHT UNIT: [id number] ADM DATE: 05/12/19 AGE: 54 : 61 SEX: F ROOM/BED: D.2210 AUTHOR: TALISHA SEO PHYSICIAN: REFERRING PHYSICIAN: YARA MENCHACA MD DATE OF SERVICE: 05/13/19 Discharge Plan Patient Name: FELICIA ALBRECHT Facility: [facility]:[place] : 1965 Planned Disposition: Home with Home Health Anticipated Discharge Date: Discharge Date: Expected LOS: Initial Reviewer: [email or web address] Initial Review Date: 05/12/2019 Generated: 05/13/19 4:59 pm Comments DCP- Discharge Planning Updated by [email or web address]: Helena Garcia on 05/13/19 2:[address] Patient Name: FELICIA ALBRECHT Admission Status: Elective Accout number: [id number] Admission Date: 05-12-2019 : 1965 Admission Diagnosis: Attending: YARA MENCHACA Current LOS: 1 Anticipated DC Date: Planned Disposition: Home with Home Health Primary Insurance: [employer] Discharge Planning Comments: CM met with patient to complete initial dc planning assessment. CM educated patient on the CM role and verbal consent given by patient to complete assessment. Patient lives at home with her spouse where she is independent with her care. At discharge patient plans to return home and feels this is a safe discharge. CM discussed availability of home health, rehab services, and medical equipment. She would like to have home health. [facility] for whoever takes her insurance. She will need a walker, CPM, and BSC at DC. CM will call MD office and see where they ordered it from. Patient denied known discharge needs at this time. CM will continue to follow and will assist as needed with dc plans/needs. Hydrologic Modeler: Helena Garcia DCPIA - Discharge Planning Initial Assessment Updated by [email or web address]: Helena Garcia on 05/13/19 3:49 pm * Is the patient Alert and Oriented? Yes * How many steps to enter\exit or inside your home? * PCP LIBYAN * Pharmacy [facility] * Preadmission Environment Home with Family * ADLs Independent * Equipment None * List name and contact numbers for known caregivers / representatives who currently or will assist patient after discharge: SANG (SPOUSE) [phone] * Verbal permission to speak to the caregivers and representatives has been obtained from the patient. Yes * Community resources currently utilized None * Additional services required to return to the preadmission environment? Yes * Can the patient safely return to the preadmission environment? Yes * Has this patient been hospitalized within the prior 30 days at any hospital? No External Providers External Provider: [facility] Contact Date: Service Request Date: Service Type: Resolution: Reviewer: Comments: Last DP export: 05/13/19 2:51 Patient Name: FELICIA ALBRECHT Page 81196 at 1559 All edits/amendments must be made on the electronic document DICTATION DATE: 05/13/191558 FONDANT MACHINE OPERATOR: KEDAR 05/13/191558 RPT#: [id number] DC DATE: STATUS: ADM IN [facility] [address] [place] [address] END OF REPORT
[2019-05-13 16:28] VITALS: BP 128/61
[2019-05-13 19:00] VITALS: BP 137/61
--- NOTE | 2019-05-13 20:00 | NUR ---
ALERT RESTING IN BED CPM IN USE TO RIGHT KNEE, C/O SEVERE PAIN TO KNEE MEDICATED WITH DILAUDID ORDERED, SEE SHIFT ASSESSMENT, CALL LIGHT IN REACH
[2019-05-14] VITALS: BP 131/67
[2019-05-14 04:00] VITALS: BP 170/70
[2019-05-14 06:54] LABS: BASOPHILS 0.1 % (0-2); EOSINOPHILS 0.3 % (0-7); HEMATOCRIT 34.1 % (36.0-48.0); IMMATURE GRANULOCYTES 0.3 % (0-5); LYMPHOCYTES 17.7 % (15-50); MCH 27.6 pg (26.0-34.0); MCHC 32.3 g/dL (31.0-37.0); MCV 85.7 fL (80.0-100.0); NEUTROPHILS 66.6 % (40-80); PLATELET COUNT 217 10x3/uL (130-400); RBC 3.98 10x6/uL (4.00-5.40); RDW 14.6 % (11.5-14.5); WBC 10.5 10x3/uL (4.8-10.8)
--- NOTE | 2019-05-14 07:37 | NUR ---
PT RESTING IN BED. NO SIGNS OF DISTRESS. IV TO RIGHT FORARM PATENT NO REDNESS OR TENDERNESS. HAS INCISION TO RIGHT KNEE CLEAN AND INTACT. COMPLAINS OF PAIN. MEDICATIONS ALREADY GIVEN. DENIES ANY FURTHER NEED AT THIS TIME. CALL LIGHT IN REACH. BED LOW POSITION. FAMILY AT BEDSIDE AT THIS TIME.
[2019-05-14 08:12] VITALS: BP 174/56
--- NOTE | 2019-05-14 08:54 | MORECARE ---
CASE MANAGEMENT DISCHARGE SUMMARY PATIENT: FELICIA ALBRECHT UNIT: [id number] ADM DATE: 05/12/19 AGE: 54 : 61 SEX: F ROOM/BED: D.2210 AUTHOR: TALISHA SEO PHYSICIAN: REFERRING PHYSICIAN: YARA MENCHACA MD DATE OF SERVICE: 05/14/19 Discharge Plan Patient Name: FELICIA ALBRECHT [facility]:[place] : 1965 Planned Disposition: Home with Home Health Anticipated Discharge Date: Discharge Date: Expected LOS: Initial Reviewer: [email or web address] Initial Review Date: 05/12/2019 Generated: 05/14/19 9:54 am Comments DCP- Discharge Planning Updated by [email or web address]: Helena Garcia on 05/13/19 2:[address] Patient Name: FELICIA ALBRECHT Admission Status: Elective Accout number: [id number] Admission Date: 05-12-2019 : 1965 Admission Diagnosis: Attending: YARA MENCHACA Current LOS: 1 Anticipated DC Date: Planned Disposition: Home with Home Health Primary Insurance: [employer] Discharge Planning Comments: CM met with patient to complete initial dc planning assessment. CM educated patient on the CM role and verbal consent given by patient to complete assessment. Patient lives at home with her spouse where she is independent with her care. At discharge patient plans to return home and feels this is a safe discharge. CM discussed availability of home health, rehab services, and medical equipment. She would like to have home health. [facility] for whoever takes her insurance. She will need a walker, CPM, and BSC at DC. CM will call MD office and see where they ordered it from. Patient denied known discharge needs at this time. CM will continue to follow and will assist as needed with dc plans/needs. Product Specialist: Helena Garcia DCPIA - Discharge Planning Initial Assessment Updated by [email or web address]: Helena Garcia on 05/13/19 3:49 pm * Is the patient Alert and Oriented? Yes * How many steps to enter\exit or inside your home? * PCP POLISH * Pharmacy [facility] * Preadmission Environment Home with Family * ADLs Independent * Equipment None * List name and contact numbers for known caregivers / representatives who currently or will assist patient after discharge: SANG (SPOUSE) [phone] * Verbal permission to speak to the caregivers and representatives has been obtained from the patient. Yes * Community resources currently utilized None * Additional services required to return to the preadmission environment? Yes * Can the patient safely return to the preadmission environment? Yes * Has this patient been hospitalized within the prior 30 days at any hospital? No External Providers External Provider: [facility] Next Contact Date: Service Request Date: Service Type: Resolution: Reviewer: Comments: Last DP export: 05/13/19 2:59 Patient Name: FELICIA ALBRECHT Page [id number] at 0854 All edits/amendments must be made on the electronic document DICTATION DATE: 05/14/19853 MUSICIAN INSTRUMENTAL: KEDAR 05/14/19853 RPT#: [id number] DC DATE: STATUS: ADM IN [facility] [address] [place] [address] END OF REPORT
--- NOTE | 2019-05-14 09:29 | MORECARE ---
CASE MANAGEMENT DISCHARGE SUMMARY PATIENT: FELICIA ALBRECHT UNIT: [id number] ADM DATE: 05/12/19 AGE: 54 : 61 SEX: F ROOM/BED: D.2210 AUTHOR: TALISHA SEO PHYSICIAN: REFERRING PHYSICIAN: YARA MENCHACA MD DATE OF SERVICE: 05/14/19 Discharge Plan Patient Name: FELICIA ALBRECHT Facility: [facility]:[place] : 1965 Planned Disposition: Home with Home Health Anticipated Discharge Date: Discharge Date: Expected LOS: Initial Reviewer: [email or web address] Initial Review Date: 05/12/2019 Generated: 05/14/19 10:29 am Comments DCP- Discharge Planning Updated by [email or web address]: Helena Garcia on 05/14/19 8:[address] [facility] IS OUT OF NETWORK FOR PATIENT INSURANCE, REFERRAL SENT TO [facility] AND THEY ARE IN NETWORK. CM TO FOLLOW AND ASSSIT NEEDED [facility] CALLED AND STATED THAT THEY WOULD DELIVER WALKER TO HOSPITAL AND THE OTHER DME TO HOUSE WHEN DISCHARGED DCP- Discharge Planning Updated by [email or web address]: Helena Garcia on 05/13/19 2:[address] Patient Name: FELICIA ALBRECHT Admission Status: Elective Accout number: [id number] Admission Date: 05-12-2019 : 1965 Admission Diagnosis: Attending: YARA MENCHACA Current LOS: 1 Anticipated DC Date: Planned Disposition: Home with Home Health Primary Insurance: [facility] Discharge Planning Comments: CM met with patient to complete initial dc planning assessment. CM educated patient on the CM role and verbal consent given by patient to complete assessment. Patient lives at home with her spouse where she is independent with her care. At discharge patient plans to return home and feels this is a safe discharge. CM discussed availability of home health, rehab services, and medical equipment. She would like to have home health. [facility] for whoever takes her insurance. She will need a walker, CPM, and BSC at DC. CM will call MD office and see where they ordered it from. Patient denied known discharge needs at this time. CM will continue to follow and will assist as needed with dc plans/needs. Splitting Machine Feeder: Helena Garcia DCPIA - Discharge Planning Initial Assessment Updated by [email or web address]: Helena Garcia on 05/13/19 3:49 pm * Is the patient Alert and Oriented? Yes * How many steps to enter\exit or inside your home? * PCP * Pharmacy [facility] * Preadmission Environment Home with Family * ADLs Independent * Equipment None * List name and contact numbers for known caregivers / representatives who currently or will assist patient after discharge: SANG (SPOUSE) [phone] * Verbal permission to speak to the caregivers and representatives has been obtained from the patient. Yes * Community resources currently utilized None * Additional services required to return to the preadmission environment? Yes * Can the patient safely return to the preadmission environment? Yes * Has this patient been hospitalized within the prior 30 days at any hospital? No Last DP export: 05/14/19 7:54 a Patient Name: FELICIA ALBRECHT Page 35594 at 0929 All edits/amendments must be made on the electronic document DICTATION DATE: 05/14/19928 CORRECTIONS LIEUTENANT: KEDAR 05/14/19928 RPT#: [id number] DC DATE: STATUS: ADM IN [facility] [address] [place] [address] END OF REPORT
--- NOTE | 2019-05-14 11:44 | MORECARE ---
CASE MANAGEMENT DISCHARGE SUMMARY PATIENT: FELICIA ALBRECHT UNIT: [id number] ADM DATE: 05/12/19 AGE: 54 : 61 SEX: F ROOM/BED: D.2210 AUTHOR: TALISHA SEO PHYSICIAN: REFERRING PHYSICIAN: YARA MENCHACA MD DATE OF SERVICE: 05/14/19 Discharge Plan Patient Name: FELICIA ALBRECHT Facility: [facility]:[place] : 1965 Planned Disposition: Home with Home Health Anticipated Discharge Date: Discharge Date: Expected LOS: Initial Reviewer: [email or web address] Initial Review Date: 05/12/2019 Generated: 05/14/19 12:44 pm Comments DCP- Discharge Planning Updated by [email or web address]: Helena Garcia on 05/14/19 8:[address] [facility] IS OUT OF NETWORK FOR PATIENT INSURANCE, REFERRAL SENT TO [facility] AND THEY ARE IN NETWORK. CM TO FOLLOW AND ASSSIT NEEDED [facility] CALLED AND STATED THAT THEY WOULD DELIVER WALKER TO HOSPITAL AND THE OTHER DME TO HOUSE WHEN DISCHARGED DCP- Discharge Planning Updated by [email or web address]: Helena Garcia on 05/13/19 2:[address] Patient Name: FELICIA ALBRECHT Admission Status: Elective Accout number: [id number] Admission Date: 05-12-2019 : 1965 Admission Diagnosis: Attending: YARA MENCHACA Current LOS: 1 Anticipated DC Date: Planned Disposition: Home with Home Health Primary Insurance: [facility] Discharge Planning Comments: CM met with patient to complete initial dc planning assessment. CM educated patient on the CM role and verbal consent given by patient to complete assessment. Patient lives at home with her spouse where she is independent with her care. At discharge patient plans to return home and feels this is a safe discharge. CM discussed availability of home health, rehab services, and medical equipment. She would like to have home health. [facility] for whoever takes her insurance. She will need a walker, CPM, and BSC at DC. CM will call MD office and see where they ordered it from. Patient denied known discharge needs at this time. CM will continue to follow and will assist as needed with dc plans/needs. Chief Executive: Helena Garcia DCPIA - Discharge Planning Initial Assessment Updated by [email or web address]: Helena Garcia on 05/13/19 3:49 pm * Is the patient Alert and Oriented? Yes * How many steps to enter\exit or inside your home? * PCP * Pharmacy [facility] * Preadmission Environment Home with Family * ADLs Independent * Equipment None * List name and contact numbers for known caregivers / representatives who currently or will assist patient after discharge: SANG (SPOUSE) [phone] * Verbal permission to speak to the caregivers and representatives has been obtained from the patient. Yes * Community resources currently utilized None * Additional services required to return to the preadmission environment? Yes * Can the patient safely return to the preadmission environment? Yes * Has this patient been hospitalized within the prior 30 days at any hospital? No Last DP export: 05/14/19 8:29 a Patient Name: FELICIA ALBRECHT Page [id number] at 1144 All edits/amendments must be made on the electronic document DICTATION DATE: 05/14/19 1144 PLANER OPERATOR / GRADER: KEDAR 05/14/19 1144 RPT#: [id number] DC DATE: STATUS: ADM IN [facility] [address] [place] [address] END OF REPORT
--- NOTE | 2019-05-14 12:21 | MORECARE ---
CASE MANAGEMENT DISCHARGE SUMMARY PATIENT: FELICIA ALBRECHT UNIT: [id number] ADM DATE: 05/12/19 AGE: 54 : 61 SEX: F ROOM/BED: D.2210 AUTHOR: TALISHA SEO PHYSICIAN: REFERRING PHYSICIAN: YARA MENCHACA MD DATE OF SERVICE: 05/14/19 Discharge Plan Patient Name: FELICIA ALBRECHT Facility: [facility]:[place] : 1965 Planned Disposition: Home with Home Health Anticipated Discharge Date: Discharge Date: Expected LOS: Initial Reviewer: [email or web address] Initial Review Date: 05/12/2019 Generated: 05/14/19 1:21 pm Comments DCP- Discharge Planning Updated by [email or web address]: Helena Garcia on 05/14/19 11:[address] PATIENT IS DISCHARGING HOME WITH [facility] AND DME FROM [employer]. HERE TO DRIVE HOME. CM TO FOLLOW AND ASSIST NEEDED DCP- Discharge Planning Updated by [email or web address]: Helena Garcia on 05/14/19 8:[address] [facility] IS OUT OF NETWORK FOR PATIENT INSURANCE, REFERRAL SENT TO [facility] AND THEY ARE IN NETWORK. CM TO FOLLOW AND ASSSIT NEEDED [facility] CALLED AND STATED THAT THEY WOULD DELIVER WALKER TO HOSPITAL AND THE OTHER DME TO HOUSE WHEN DISCHARGED DCP- Discharge Planning Updated by [email or web address]: Helena Garcia on 05/13/19 2:[address] Patient Name: FELICIA ALBRECHT Admission Status: Elective Accout number: [id number] Admission Date: 05-12-2019 : 1965 Admission Diagnosis: Attending: YARA MENCHACA Current LOS: 1 Anticipated DC Date: Planned Disposition: Home with Home Health Primary Insurance: [employer] Discharge Planning Comments: CM met with patient to complete initial dc planning assessment. CM educated patient on the CM role and verbal consent given by patient to complete assessment. Patient lives at home with her spouse where she is independent with her care. At discharge patient plans to return home and feels this is a safe discharge. CM discussed availability of home health, rehab services, and medical equipment. She would like to have home health. [facility] for whoever takes her insurance. She will need a walker, CPM, and BSC at DC. CM will call MD office and see where they ordered it from. Patient denied known discharge needs at this time. CM will continue to follow and will assist as needed with dc plans/needs. Computer Systems Software Engineer: Helena Garcia DCPIA - Discharge Planning Initial Assessment Updated by [email or web address]: Helena Garcia on 05/13/19 3:49 pm * Is the patient Alert and Oriented? Yes * How many steps to enter\exit or inside your home? * PCP [facility] * Pharmacy [facility] * Preadmission Environment Home with Family * ADLs Independent * Equipment None * List name and contact numbers for known caregivers / representatives who currently or will assist patient after discharge: SANG (SPOUSE) [phone] * Verbal permission to speak to the caregivers and representatives has been obtained from the patient. Yes * Community resources currently utilized None * Additional services required to return to the preadmission environment? Yes * Can the patient safely return to the preadmission environment? Yes * Has this patient been hospitalized within the prior 30 days at any hospital? No Last DP export: 05/14/19 10:44 a Patient Name: FELICIA ALBRECHT Page [id number] at 1221 All edits/amendments must be made on the electronic document DICTATION DATE: 05/14/191220 TEST BORER HELPER: KEDAR 05/14/191220 RPT#: [id number] NM DATE: STATUS: ADM IN [facility] [address] [place] [address] END OF REPORT
[2019-05-14] MEDS ORDERED: HYDROCODONE-A1 UDTA2 PO (12:59)
[2019-05-14] MEDS ORDERED: ASPIRIN325 MG PO (12:59)
[2019-05-14] MEDS ORDERED: DOXYCYCLINE HY100 M2 PO (12:59)
--- NOTE | 2019-05-14 13:40 | NUR ---
DISCHARGE INSTRUCTIONS GIVEN. SEEMS TO UNDERSTAND ISTRUCTIONS. LEFT WITH HOSPTIAL STAFF TO GO IN PERSONAL RIDE WITH . NO SIGNS OF DISTRESS UPON LEAVING. WOUND VAC CHANGED OVER. IV OUT TIP INTACT.
--- NOTE | 2019-05-14 15:25 | MORECARE ---
CASE MANAGEMENT DISCHARGE SUMMARY PATIENT: FELICIA ALBRECHT UNIT: [id number] ADM DATE: 05/12/19 AGE: 54 : 61 SEX: F ROOM/BED: D.2210 AUTHOR: TALISHA SEO PHYSICIAN: REFERRING PHYSICIAN: YARA MENCHACA MD DATE OF SERVICE: 05/14/19 Discharge Plan Patient Name: FELICIA ALBRECHT Facility: [facility]:[place] : 1965 Planned Disposition: Home with Home Health Anticipated Discharge Date: Discharge Date: 05/14/2019 Expected LOS: 0 Initial Reviewer: [email or web address] Initial Review Date: 05/12/2019 Generated: 05/14/19 4:25 pm Comments DCP- Discharge Planning Updated by [email or web address]: Helena Garcia on 05/14/19 11:[address] PATIENT IS DISCHARGING HOME WITH [facility] AND DME FROM [employer]. HERE TO DRIVE HOME. CM TO FOLLOW AND ASSIST NEEDED DCP- Discharge Planning Updated by [email or web address]: Helena Garcia on 05/14/19 8:[address] [facility] IS OUT OF NETWORK FOR PATIENT INSURANCE, REFERRAL SENT TO [facility] AND THEY ARE IN NETWORK. CM TO FOLLOW AND ASSSIT NEEDED [facility] CALLED AND STATED THAT THEY WOULD DELIVER WALKER TO HOSPITAL AND THE OTHER DME TO HOUSE WHEN DISCHARGED DCP- Discharge Planning Updated by [email or web address]: Helena Garcia on 05/13/19 2:[address] Patient Name: FELICIA ALBRECHT Admission Status: Elective Accout number: [id number] Admission Date: 05-12-2019 : 1965 Admission Diagnosis: Attending: YARA MENCHACA Current LOS: 1 Anticipated DC Date: Planned Disposition: Home with Home Health Primary Insurance: [employer] Discharge Planning Comments: CM met with patient to complete initial dc planning assessment. CM educated patient on the CM role and verbal consent given by patient to complete assessment. Patient lives at home with her spouse where she is independent with her care. At discharge patient plans to return home and feels this is a safe discharge. CM discussed availability of home health, rehab services, and medical equipment. She would like to have home health. [facility] for whoever takes her insurance. She will need a walker, CPM, and BSC at DC. CM will call MD office and see where they ordered it from. Patient denied known discharge needs at this time. CM will continue to follow and will assist as needed with dc plans/needs. Clinical Laboratory Technologist: Helena Garcia DCPIA - Discharge Planning Initial Assessment Updated by [email or web address]: Helena Garcia on 05/13/19 3:49 pm * Is the patient Alert and Oriented? Yes * How many steps to enter\exit or inside your home? * PCP [facility] * Pharmacy [facility] * Preadmission Environment Home with Family * ADLs Independent * Equipment None * List name and contact numbers for known caregivers / representatives who currently or will assist patient after discharge: SANG (SPOUSE) [phone] * Verbal permission to speak to the caregivers and representatives has been obtained from the patient. Yes * Community resources currently utilized None * Additional services required to return to the preadmission environment? Yes * Can the patient safely return to the preadmission environment? Yes * Has this patient been hospitalized within the prior 30 days at any hospital? No Last DP export: 05/14/19 11:21 a Patient Name: FELICIA ALBRECHT Page [id number] at 1524 All edits/amendments must be made on the electronic document DICTATION DATE: 05/14/191524 DENTAL EQUIPMENT MECHANIC: KEDAR 05/14/191524 RPT#: [id number] DC DATE:05/14/19 STATUS: DIS IN [facility] [address] [place] [address] END OF REPORT
== END 2019-05-14 13:41 | disposition home health service (06) | DRG 468 ==
LOC: D.SDCHOLD 04-28 10:00 → D.MS 05-12 08:35 → D.SDCHOLD 05-12 08:35 → D.MS 05-12 15:55
PROVIDERS: ADMIT Orthopaedic Surgery; ATTEND Orthopaedic Surgery
PROC: 0SPC0JZ Removal of Synthetic Substitute from Right Knee Joint, Open Approach (ICD-10-PCS; principal; 2019-05-12 10:30)
PROC: 0SRC0J9 Replacement of Right Knee Joint with Synthetic Substitute, Cemented, Open Approach (ICD-10-PCS; 2019-05-12 10:30)
DX: T84.022A Instability of internal right knee prosthesis, initial encounter (principal); I10 Essential (primary) hypertension; E11.9 Type 2 diabetes mellitus without complications; J43.9 Emphysema, unspecified; I50.9 Heart failure, unspecified; M79.7 Fibromyalgia

== ENCOUNTER → 2019-05-04 10:26 | Outpatient (CLI) | payer OTHER, MEDICAID ==
[2019-03-22 10:07] VITALS: BMI 32.7
[~2019-05-04 10:26] MED LIST changes: +ASPIRIN325 MG PO; +DOXYCYCLINE HY100 M2 PO; +HYDROCODONE-A1 UDTA2 PO
[2019-05-04 14:41] LABS: EOS BF 1 %; MACROPHAGES BF 21 %; NEUT - BF 51 %
== END | disposition home or self-care (01) ==
LOC: D.LABREF 10:26
PROVIDERS: ATTEND Orthopaedic Surgery
DX: M25.561 Pain in right knee (principal)

== ENCOUNTER 2019-05-17 15:18 | Emergency (ER) | payer OTHER, MEDICAID ==
[~2019-05-17] VITALS: Ht 172.7 cm; Wt 97.7 kg
[2019-05-17 15:20] VITALS: Ht 172.7 cm; Wt 97.7 kg
[2019-05-17 16:51] LABS: BASOPHILS 0.4 % (0-2); EOSINOPHILS 2.3 % (0-7); HEMATOCRIT 36.9 % (36.0-48.0); HEMOGLOBIN 12.3 g/dL (12-16); IMMATURE GRANULOCYTES 0.8 % (0-5); LYMPHOCYTES 30.7 % (15-50); MCH 28.4 pg (26.0-34.0); MCHC 33.3 g/dL (31.0-37.0); MCV 85.2 fL (80.0-100.0); MEAN PLATELET VOLUME 10.5 fL (7.4-10.4); MONOCYTES 9.7 % (2-11); NEUTROPHILS 56.1 % (40-80); RBC 4.33 10x6/uL (4.00-5.40); RDW 14.3 % (11.5-14.5)
[2019-05-17 16:52] LABS: PLATELET COUNT 356 10x3/uL (130-400)
[2019-05-17 17:01] LABS: ANION GAP 15.7 mmol/L (8-16); CALCIUM 10.2 mg/dL (8.5-10.1); CARBON DIOXIDE 24.4 mmol/L (21.0-32.0); CREATININE - SERUM 1.1 mg/dL (0.6-1.3); POTASSIUM - SERUM 3.1 mmol/L (3.5-5.1)
[2019-05-17 17:07] LABS: ALBUMIN 3.2 g/dL (3.4-5.0); BILIRUBIN - TOTAL 0.46 mg/dL (0.2-1.3); PROTEIN - SERUM 8.6 g/dL (6.4-8.2)
[2019-05-17 20:55] VITALS: BP 129/71
== END 2019-05-17 20:47 | disposition home or self-care (01) ==
LOC: D.ER 15:18
PROVIDERS: Emergency Medicine
DX: T84.84XA Pain due to internal orthopedic prosthetic devices, implants and grafts, initial encounter (principal); Z96.651 Presence of right artificial knee joint; I10 Essential (primary) hypertension; E11.9 Type 2 diabetes mellitus without complications; Z79.84 Long term (current) use of oral hypoglycemic drugs; J45.909 Unspecified asthma, uncomplicated

== ENCOUNTER → 2019-05-25 14:36 | Outpatient (CLI) | payer OTHER, MEDICAID ==
[2019-05-17 15:20] VITALS: BMI 32.7
[2019-05-25 16:02] LABS: APPEARANCE CLEAR (CLEAR); BILIRUBIN NEGATIVE (NEGATIVE); COLOR YELLOW (YELLOW); GLUCOSE NEGATIVE (NEGATIVE); KETONE NEGATIVE (NEGATIVE); NITRITE NEGATIVE (NEGATIVE); PROTEIN NEGATIVE (NEGATIVE); SPECIFIC GRAVITY 1.025 (1.005-1.020); UROBILINOGEN NORMAL (NORMAL)
[2019-05-25 16:03] LABS: BACTERIA FEW /hpf (NEGATIVE); EPITHELIAL CELLS 0-5 /hpf (0-5); RED CELLS - URINE 0-5 /hpf (0-5); WHITE CELLS - URINE 0-5 /hpf (NEGATIVE)
== END | disposition home or self-care (01) ==
LOC: D.LAB 14:36
PROVIDERS: ATTEND Orthopaedic Surgery
DX: N39.0 Urinary tract infection, site not specified (principal)

== ENCOUNTER → 2019-06-29 12:20 | Outpatient (CLI) | payer OTHER, MEDICAID ==
[2019-05-17 15:20] VITALS: BMI 32.7
[2019-06-29 12:44] LABS: APPEARANCE CLEAR (CLEAR); BILIRUBIN NEGATIVE (NEGATIVE); COLOR YELLOW (YELLOW); GLUCOSE NEGATIVE (NEGATIVE); KETONE NEGATIVE (NEGATIVE); NITRITE NEGATIVE (NEGATIVE); PROTEIN NEGATIVE (NEGATIVE); SPECIFIC GRAVITY 1.025 (1.005-1.020); UROBILINOGEN NORMAL (NORMAL)
== END | disposition home or self-care (01) ==
LOC: D.LAB 12:20
PROVIDERS: ATTEND Orthopaedic Surgery
DX: N39.0 Urinary tract infection, site not specified (principal)

== ENCOUNTER → 2019-09-28 08:06 | Outpatient (CLI) | payer OTHER, MEDICAID ==
[2019-05-17 15:20] VITALS: BMI 32.7
== END | disposition home or self-care (01) ==
LOC: D.NM 08:06
PROVIDERS: ATTEND Clinical Nurse Specialist Family Health
DX: M25.561 Pain in right knee (principal)

== ENCOUNTER 2020-03-27 12:38 | Emergency (ER) | payer OTHER, MEDICAID ==
[~2020-03-27] VITALS: Ht 172.7 cm; Wt 97.7 kg
[2020-03-27 13:05] VITALS: Ht 172.7 cm; Wt 97.7 kg
[2020-03-27 13:54] LABS: BILIRUBIN NEGATIVE (NEGATIVE); KETONE NEGATIVE (NEGATIVE); NITRITE NEGATIVE (NEGATIVE); UROBILINOGEN NORMAL mg/dL (< 2)
[2020-03-27 13:56] LABS: BACTERIA FEW /HPF (NONE SEEN); EPITHELIAL CELLS OCC /hpf (0-5); WHITE CELLS - URINE 0-5 HPF (0-4)
[2020-03-27 14:01] LABS: CALC OSMOLALITY 272 mosm/kg (275-300); CALCIUM 9.6 mg/dL (8.5-10.1); CARBON DIOXIDE 25.7 mmol/L (21.0-32.0); CHLORIDE - SERUM 104 mmol/L (98-107); CREATININE - SERUM 0.8 mg/dL (0.6-1.3); GLUCOSE 103 mg/dL (74-106); POTASSIUM - SERUM 3.6 mmol/L (3.5-5.1); SODIUM 136 mmol/L (136-145); UREA NITROGEN 14 mg/dL (7-18); eGFR NON AFRICAN AMERICAN 78 mL/min (90-120)
[2020-03-27 14:06] LABS: HEMOGLOBIN 12.2 g/dL (12-16); MCH 28.2 pg (26.0-34.0); MCHC 32.1 g/dL (31.0-37.0); MEAN PLATELET VOLUME 10.4 fL (7.4-10.4); PLATELET COUNT 240 10x3/uL (130-400); RBC 4.32 10x6/uL (4.00-5.40); RDW 14.8 % (11.5-14.5); WBC 6.5 10x3/uL (4.8-10.8)
[2020-03-27 14:10] LABS: ALBUMIN 3.6 g/dL (3.4-5.0); ALKALINE PHOSPHATASE 69 U/L (30-120); ALT (SGPT) 19 U/L (10-68); AMYLASE - SERUM 72 U/L (25-115); BILIRUBIN - TOTAL 0.39 mg/dL (0.2-1.3); LIPASE 73 U/L (73-393); PROTEIN - SERUM 7.5 g/dL (6.4-8.2); TROPONIN-I < 0.017 ng/mL (0.000-0.060)
[2020-03-27 15:50] LABS: EOSINOPHILS 5 % (0-7); LYMPHOCYTES 49 % (15-50); NEUTROPHILS 45 % (40-80); PLATELET ESTIMATE NORMAL
[2020-03-27 17:00] VITALS: BP 131/95
== END 2020-03-27 17:00 | disposition home or self-care (01) ==
LOC: D.ER 12:38
PROVIDERS: Family Medicine
DX: R10.31 Right lower quadrant pain (principal); E11.9 Type 2 diabetes mellitus without complications; I10 Essential (primary) hypertension; J45.909 Unspecified asthma, uncomplicated; K21.9 Gastro-esophageal reflux disease without esophagitis; Z79.84 Long term (current) use of oral hypoglycemic drugs